=== PATIENT | male | born 1935 | race Two or more races ===

== ENCOUNTER 2023-11-14 08:44 | Outpatient (REF) | payer MEDICARE, SELFPAY ==
--- NOTE | ~2023-11-14 | XR_ITS ---
EXAMINATION: XR BOTH KNEES AP STANDING XR LEFT KNEE, 2 VIEWS CLINICAL INFORMATION: Bilateral knee pain. COMPARISON: None available. TECHNIQUE: Standing AP view of both knees and lateral and sunrise views of the left knee. FINDINGS: LEFT KNEE: Atherosclerotic calcifications are present in the popliteal artery. Mild soft tissue swelling. No fracture or joint effusion. Alignment is anatomic. Joint spaces are well maintained. RIGHT KNEE: Surgical clips are present in the medial soft tissues of the calf. The bones, joints, and soft tissues are otherwise normal on the single AP view. XR/XR knee LT 3V IMPRESSION: Mild soft tissue swelling at the left knee. No acute osseous findings. Electronically signed by: Charlie Pratt MD 11/20/2023 11:46 AM EDT RP
--- NOTE | ~2023-11-14 | XR_ITS ---
EXAMINATION: XR BOTH KNEES AP STANDING XR LEFT KNEE, 2 VIEWS CLINICAL INFORMATION: Bilateral knee pain. COMPARISON: None available. TECHNIQUE: Standing AP view of both knees and lateral and sunrise views of the left knee. FINDINGS: LEFT KNEE: Atherosclerotic calcifications are present in the popliteal artery. Mild soft tissue swelling. No fracture or joint effusion. Alignment is anatomic. Joint spaces are well maintained. RIGHT KNEE: Surgical clips are present in the medial soft tissues of the calf. The bones, joints, and soft tissues are otherwise normal on the single AP view. XR/XR knee RT 1V IMPRESSION: Mild soft tissue swelling at the left knee. No acute osseous findings. Electronically signed by: Charlie Pratt MD 11/20/2023 11:46 AM EDT RP
== END 2023-11-14 08:45 | disposition home or self-care (01) ==
LOC: HO.XRAY 08:44
PROVIDERS: PCP Internal Medicine; Visit Provider Physician Assistant
DX: M25.562 Pain in left knee (principal); M25.561 Pain in right knee
CPT/HCPCS: 20610; 73560; 73562; 99202; J1010

== ENCOUNTER 2023-11-14 09:40 | Outpatient (AMB) | payer MEDICARE, SELFPAY ==
--- NOTE | 2023-11-14 09:43 | MHC.OFFVIS ---
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 Patient reports his pain has been present a little over 3 months that is getting worse and his mobility is decrease. His pain is located at the medial aspect of knee and is tender to the touch. Denies giving out. He attended PT however this did not help. No other tx. Return To Factory Clerk Required: Yes Return To Factory Clerk Services: Return To Factory Clerk Offered & Declined Accompanied by: Daughter Allergies No Known Allergies Allergy (Verified 11/14/23 09:44) Medication List - Last Reconciled 11/14/23 by Rosi Meraz PA-C apixaban (Eliquis) 5 mg PO BID aspirin 81 mg PO DAILY carvedilol 6.25 mg PO BID cholecalciferol (vitamin D3) 10 mcg PO DAILY sacubitril-valsartan 24-26 mg (Entresto) 1 tab PO BID simvastatin 40 mg PO BEDTIME spironolactone 25 mg PO DAILY HPI HPI CABLE PLACER- Left Knee Pain: Details: 87-year-old male who presents to the office today with an ophthalmic medical technologist for an evaluation of left knee pain for over 3 months. He states he has worsening pain at the medial aspect of his left knee that is tender to touch. He denies his knee giving out. He has attended physical therapy which did not provide him any relief. He has not had any other treatment. ? PFSH Surgical History (Updated 11/14/23 @ 09:46 by ANDREA Pinedo) Hx of hernia repair Social History (Updated 11/14/23 @ 09:46 by ANDREA Pinedo) Patient Tobacco Use Status: Former Tobacco user Current occupational status: retired Review of Systems Const All systems reviewed & are unremarkable except as noted in HPI and below Physical Exam Const General: cooperative, healthy appearing, comfortable, no acute distress, well developed and alert Orientation/consciousness: patient oriented x3 HEENT Head: Yes normal to inspection, Yes normocephalic and Yes atraumatic Eyes General: appearance normal, both eyes and all related structures Resp Effort & Inspection: normal respiratory effort and able to speak in complete sentences Cardio Rate: regular rate Peripheral pulses: Peripheral pulses 2+ throughout GI Palpation (GI): Soft to palpation Skin Lesions: no lesions Rashes: no rashes Neuro General: patient oriented x3 Extrem Other: Left knee: Skin intact, no erythema or joint effusion. Significant point tenderness to the medial femoral condyle. Full ROM with crepitus. Negative Melissa?s. No ligamentous laxity. NVI. ? Office Procedures Joint Injection/Aspiration Joint Injection/Aspiration Primary Site: left knee Prep: site was prepped using aseptic technique, ethochloride spray was applied and injection warnings given Injected: 80 mg of, DepoMedrol, with 8 mL of, 1% plain lidocaine and in the joint Approach Used: anterolateral Procedure: The patient tolerated the procedure well and there was some relief with the local anesthesia Coding - Glenohumeral/Tronchanteric Bursa/Intraarticular Procedure code (CPT) selection complete Results Reviewed Results Reviewed: Xrays were obtained today show mild pf / med compartment oa Assessment & Plan Assessment & Plan (1) Osteoarthritis of left knee: Code(s): M17.12 - Unilateral primary osteoarthritis, left knee Category: Medical Plan We discussed options today, which include steroid injection. The patient did consent to move forward with the injection, which was tolerated well. I recommended rest, ice, and elevation and OTC anti-inflammatories as needed for discomfort. An MRI of the left knee was also ordered in the office today to further evaluate the pain along the MFC. If symptoms persist or worsen over the next 6-8 weeks, patient will contact the office, otherwise follow-up as needed. Orders: Orders XR knee LT 3V Today M25.562 - Pain in left knee XR knee RT 1V Today M25.561 - Pain in right knee MR knee LT wo con Today M17.12 - Unilateral primary osteoarthritis, left knee Patient Instructions: Scribed for Rosi Meraz PA-C, by Anton Van medical billing representative, on 11/04/2023 at 9:15 AM EST.? I, Rosi Meraz PA-C, have personally reviewed and agree with the information entered by the scribe. Coding Level of Care Code New Pt Level 3 (72777) Complex EM visit Add On G2211 Diagnoses Osteoarthritis of left knee M17.12 CPT Codes Coding - Joint 7: 31013 - Glenohumeral/Tronchanteric Bursa/Intraarticular ([id number])
== END 2023-11-14 10:59 | disposition home or self-care (01) ==
PROVIDERS: PCP Internal Medicine; Visit Provider Physician Assistant
DX: M17.12 Unilateral primary osteoarthritis, left knee (principal)
CPT/HCPCS: 20610; 99203

== ENCOUNTER 2024-01-07 10:06 | Outpatient (REF) | payer MEDICARE, SELFPAY ==
--- NOTE | ~2024-01-07 | MR_ITS ---
EXAMINATION: MR KNEE WITHOUT CONTRAST, LEFT CLINICAL INFORMATION: Medial left knee pain. Worsening. Osteoarthritis. COMPARISON: Left knee radiographs dated 11/14/2023. TECHNIQUE: MRI of the knee without contrast was performed using routine sequences on a high-field scanner. FINDINGS: MENISCI: Medial Meniscus: Intact. Lateral Meniscus: Intact. LIGAMENTS: Cruciate: Increased T2 signal within the anterior cruciate ligament which could represent a grade 1 sprain versus mucoid degeneration. Intact posterior cruciate ligament. Collateral: Intact. EXTENSOR MECHANISM: Intact. ARTICULAR CARTILAGE/BONE: Patellofemoral Compartment: Intact articular cartilage. Medial Compartment: Intact articular cartilage. Within the medial aspect of the medial femoral condyle there is an ovoid focus of heterogeneously isointense T1 and hyperintense T2 signal measuring approximately 2.3 x 1.4 x 2.4 cm (AP x ML x CC). Adjacent marrow edema as well as mild periosteal edema. There are tiny foci of fat signal centrally within the lesion. Findings are nonspecific and differential diagnosis includes atypical appearance of an endochondroma versus chondrosarcoma. Additionally, metastasis or myeloma could be considered. Lateral Compartment: Intact articular cartilage. JOINT FLUID AND BURSAE: Small joint effusion. MR/MR knee LT wo con IMPRESSION: 1. Ovoid lesion within the medial aspect of the medial femoral condyle measuring up to 2.4 cm with adjacent marrow and periosteal edema. Findings are nonspecific and differential diagnosis includes atypical appearance of an endochondroma versus chondrosarcoma. Additionally, metastasis or myeloma could be considered. 2. Increased T2 signal within the anterior cruciate ligament which could represent a grade 1 sprain versus mucoid degeneration. 3. No meniscal tear. 4. Small joint effusion. Electronically signed by: Andreas Marks MD 01/25/2024 11:59 AM [facility]
== END 2024-01-07 10:07 | disposition home or self-care (01) ==
LOC: HO.MRI 10:06
PROVIDERS: PCP Internal Medicine; Visit Provider Physician Assistant
DX: M17.12 Unilateral primary osteoarthritis, left knee (principal)
CPT/HCPCS: 73721

== ENCOUNTER 2024-03-10 07:44 | Outpatient (REF) | payer MEDICARE, SELFPAY ==
--- NOTE | ~2024-03-10 | CT_ITS ---
CLINICAL HISTORY: M89.9 - Disorder of bone, unspecified CT left knee without IV contrast Comparison: Knee MRI 01/07/2024, x-rays 11/14/2023 Findings: Lucency within the subcortical medial femoral condyle at approximate 23 x 14 x 26 mm, correlating to MRI abnormality. Small foci of fat signal within this on MRI n less apparent on CT although minimal matrix calcification suggested along the inferior margin. Could be an atypical enchondroma, although cortical dehiscence is concerning for more aggressive process and low-grade chondrosarcoma considered. Other possibilities not excluded and histologic evaluation recommended for definitive diagnosis. No associated soft tissue mass.. No other bone lesions. No significant joint space narrowing. No hypertrophic or typical erosive changes. Trace joint effusion. Mild arterial calcification. Mild prepatellar edema. IMPRESSION: Lucent lesion in the medial femoral condyle similar to MRI possibly with a small amount of matrix calcification suggesting potential small enchondroma although cortical dehiscence is concerning for more aggressive lesion. Histologic evaluation recommended for definitive diagnosis. This document has been electronically signed by: Reid Rivera MD on 03/10/2024 10:12:16
== END 2024-03-10 07:45 | disposition home or self-care (01) ==
LOC: HO.CT 07:44
PROVIDERS: PCP Internal Medicine; Visit Provider Physician Assistant
DX: M89.9 Disorder of bone, unspecified (principal)
CPT/HCPCS: 73700

== ENCOUNTER → 2024-03-10 07:46 | Outpatient (BNV) | payer MEDICARE, SELFPAY | PROVIDERS: PCP Internal Medicine; Visit Provider Radiology Diagnostic Radiology | DX: M89.8X5 Other specified disorders of bone, thigh (principal) | CPT/HCPCS: 73700 ==